=== PATIENT | male | born 1960 | race Caucasian/White ===

== ENCOUNTER → 2020-08-19 14:19 | Outpatient (CLI) | payer OTHER, SELFPAY ==
[2020-08-19 15:26] LABS: COVID19 -Nasal RAPID Negative (Negative)
== END ==
PROVIDERS: Visit Provider Physician Assistant
DX: Z11.59 Encounter for screening for other viral diseases (principal)
CPT/HCPCS: 87635

== ENCOUNTER 2020-08-21 13:51 | Day surgery (SDC) | payer OTHER, SELFPAY ==
[2020-08-21] VITALS (7 sets, daily range): BP systolic 135–176; BP diastolic 97–108; PULSE 65–86; RESP 16–24; TEMP 36.2–36.8; O2SAT 93–96; BMI 27.1
--- NOTE | 2020-08-21 | PATH_ITS ---
[facility] Accession Number: [id number] . 01 Material submitted: . PART A: esophagus - DISTAL ESOPHAGUS PART B: esophagus - PROXIMAL ESOPHAGUS . 01 Clinical history: . A: DISTAL ESOPHAGUS R/O CASTELLANOS'S B: PROXIMAL ESOPHAGUS R/O EOE . 02 Diagnosis: A. Distal Esophagus, Biopsy: Squamocolumnar junctional mucosa with moderate chronic, mild active inflammation. Negative for specialized intestinal metaplasia or fungal organisms on AB/PAS stain. Negative for Helicobacter organisms by immunohistochemistry. Negative for dysplasia or malignancy. . B. Proximal Esophagus, Biopsy: Squamous mucosa with increased intraepithelial eosinophils (up to 35 eosinophils per high powered field). See comment. Negative for dysplasia and malignancy. [facility] 08/26/2020 1530 Local . 02 Comment: B. In the proper clinical setting, the histopathologic appearance would support a clinical impression of eosinophilic esophagitis. The differential diagnosis includes drug reaction, gastroesophageal reflux, and food allergies. . . 02 Electronically signed: . Srinivas Felix MD, PhD, Pathologist NPI- [id number] . 01 Gross description: . Part A: DISTAL ESOPHAGUS: Received in formalin are minute fragment(s) of aly, soft tissue measuring 0.2 x 0.2 x 0.1 cm in aggregate submitted entirely in 1 cassette(s) Part B: PROXIMAL ESOPHAGUS: Received in formalin are minute fragment(s) of aly, soft tissue measuring 0.4 x 0.4 x 0.1 cm in aggregate submitted entirely in 1 cassette(s) /[facility]J 08/22/2020 0714 Local . 02 Microscopic: . A. An AB/PAS stain is performed to evaluate for specialized intestinal metaplasia, and is negative for goblet cells or fungal organisms. Given the degree of chronic inflammation, an immunohistochemical stain is performed to evaluate for Helicobacter organisms, and is negative. The control stains show appropriate reactivity. . B. An AB/PAS stain is performed to evaluate for fungal organisms, and is negative. A control stain shows appropriate reactivity. . * This test was developed and its performance characteristics determined by [facility]. It has not been cleared or approved by the U.[place]. Food and Drug Administration. The FDA has determined that such clearance or approval is not necessary. This test is used for clinical purposes. It should not be regarded as investigational or for research. . 02 Pathologist provided ICD-10: K20.90, K20.0 . 02 CPT . 384831, 721526, L62998, 222818, 820572 Performed at: 01 [facility] [address] [place] [address], [place], [place] [id number] MD Dickson Obrien MD Phone: [phone] Performed at: 02 [facility] [place] [address] [address] [place], [place] [id number] MD Sara Crocker MD Phone: [phone]
[2020-08-21] MEDS: SODIUM CHLORIDE 0.9% 1,000 ML 200 ML IV (14:32)
--- NOTE | 2020-08-21 14:43 | SUR.PREOP ---
FAST exam WNL Patient has previous history of CVA. GCS 15.
--- NOTE | 2020-08-21 15:28 | PM.PREOP ---
Pre-operative Note COVID-19 COVID-19 status: Negative Interval Note History & Physical reviewed/Exam performed by Physician: Yes Changes to H&P: No ASA Class (for procedural sedation): III
--- NOTE | 2020-08-21 15:29 | PM.OP.ENDO ---
Operative Date/Time/Diagnoses Date of procedure: 08/21/20 Pre-op diagnosis: See indication and findings Procedure & Clinicians Study performed: EGD Same procedure as scheduled: Yes Indications: Cervical dysphagia and possible Daley's esophagus Surgeon: Prakash Nix Procedure Notes Procedure in detail: After informed consent was obtained the patient was placed in the left lateral decubitus position. The video upper scope was placed into the oropharynx with the patient's help swallowed into the esophagus. The esophagus stomach and duodenum were carefully examined. On withdrawal, retroflexed view the GE junction was performed. The scope was removed. The patient tolerated procedure well. Blood loss none Complications noneM Sedation MAC with anesthesia Findings 1. Multiple rings and longitudinal furrows throughout the proximal and mid esophagus. Biopsies taken to rule out eosinophilic esophagitis 2. Significant erosions and ulcerations in a noncontiguous fashion from 34-44 cm at the GE junction. This meets criteria for LA classification C esophagitis. 3. Irregular squamocolumnar junction 43-44 cm. Two tongues of possible Daley's esophagus were seen. Biopsies taken to rule out Daley's. Retroflexed view the GE junction was relatively unremarkable 4. Normal stomach 4. Normal duodenal bulb and sweep For Mr. munroe may restart his Plavix tonight and restart his Eliquis tomorrow. We will follow up with pathology but he will do best to follow up with me for a telehealth visit at the very least discuss implications for his proton pump inhibitor therapy.
--- NOTE | 2020-08-21 17:13 | SUR.PHASEII ---
1645-Pt dressed now and ambulating around bed without problems. Waiting for ride coming from [facility]. sitting on bed having a large snack and juices. VSS
--- NOTE | 2020-08-21 17:18 | SUR.PHASEII ---
1705-Pt dcd in stable condition via wc with no c/o.
--- NOTE | 2020-09-13 12:37 | PM.HP.1 ---
History of Present Illness History of Present Illness Date Patient Seen: 08/21/20 Chief complaint: SDC Narrative: Dysphagia Patient History Medical History (Updated 09/13/20 @ 12:40 by Prakash Nix MD) DVT (deep venous thrombosis) Pulmonary embolus Family & Social History Social History: household members family Tobacco & Substance use: Smoking Status Never smoker alcohol intake never Substance Use Type does not use Meds Home Medications and Allergies Home Medications Medication Instructions Recorded Confirmed Type amlodipine 10 mg PO DAILY 08/21/20 08/21/20 History apixaban [Eliquis] 5 mg PO DAILY 08/21/20 08/21/20 History atorvastatin 80 mg PO DAILY 08/21/20 08/21/20 History carvedilol 25 mg PO BID 08/21/20 08/21/20 History citalopram 20 mg PO DAILY 08/21/20 08/21/20 History clopidogrel 75 mg PO DAILY 08/21/20 08/21/20 History divalproex 500 mg PO TID 08/21/20 08/21/20 History insulin glargine [Lantus U-100 10 SUBCUT DAILY 08/21/20 History Insulin] losartan 100 mg PO DAILY 08/21/20 08/21/20 History Allergies Allergy/AdvReac Type Severity Reaction Status Date / Time daptomycin Allergy Mild Rash Verified 08/21/20 14:31 vancomycin Allergy Mild Rash Verified 08/21/20 14:31 Exam Vital Signs (past 8 hours): Oxygen Delivery Method Room Air Narrative Exam Narrative: Oropharynx free of lesions Chest clear to auscultation percussion Cardiac exam reveals no S3 or murmur Assessment & Plan Assessment & Plan narrative: Dysphagia need for EGD. Risks, benefits, alternatives have been explained. Further recommendations will follow the results of that study.
== END 2020-08-21 17:05 | disposition home or self-care (01) ==
PROVIDERS: Referring Provider Internal Medicine Gastroenterology; Visit Provider Internal Medicine Gastroenterology
PROC: 0DJ08ZZ Inspection of Upper Intestinal Tract, Via Natural or Artificial Opening Endoscopic (ICD-10-PCS; CPT 43235; principal; 2020-08-21 15:30)
DX: K20.90 Esophagitis, unspecified without bleeding (principal); E11.40 Type 2 diabetes mellitus with diabetic neuropathy, unspecified; I10 Essential (primary) hypertension; I48.91 Unspecified atrial fibrillation; F32.9 Major depressive disorder, single episode, unspecified; Z79.4 Long term (current) use of insulin; Z79.01 Long term (current) use of anticoagulants
CPT/HCPCS: 43239